=== PATIENT | female | born 1960 | race Caucasian/White ===

== ENCOUNTER → 2017-10-19 | Outpatient (CLI) | payer MEDICAID | LOC: FIMAGING 13:19 | PROVIDERS: ATTEND Physician Assistant | DX: Z13.820 Encounter for screening for osteoporosis (principal); M85.89 Other specified disorders of bone density and structure, multiple sites; Z78.0 Asymptomatic menopausal state ==

== ENCOUNTER → 2018-02-14 | Outpatient (CLI) | payer MEDICAID | LOC: BMCIMAGING 15:19 | PROVIDERS: ATTEND Orthopaedic Surgery Hand Surgery | DX: S42.032D Displaced fracture of lateral end of left clavicle, subsequent encounter for fracture with routine healing (principal) ==

== ENCOUNTER → 2018-02-28 | Outpatient (CLI) | payer MEDICAID | LOC: BMCIMAGING 14:41 | PROVIDERS: ATTEND Orthopaedic Surgery Hand Surgery | DX: S42.002D Fracture of unspecified part of left clavicle, subsequent encounter for fracture with routine healing (principal) ==

== ENCOUNTER → 2018-03-21 | Outpatient (CLI) | payer MEDICAID | LOC: BMCIMAGING 15:14 | PROVIDERS: ATTEND Orthopaedic Surgery Hand Surgery | DX: S42.002A Fracture of unspecified part of left clavicle, initial encounter for closed fracture (principal) ==

== ENCOUNTER → 2018-05-09 | Outpatient (CLI) | payer MEDICAID | LOC: BMCIMAGING 13:42 | PROVIDERS: ATTEND Orthopaedic Surgery Hand Surgery | DX: S42.002A Fracture of unspecified part of left clavicle, initial encounter for closed fracture (principal); X58.XXXA Exposure to other specified factors, initial encounter ==